=== PATIENT | female | born 1975 | race African-American/Black ===

== ENCOUNTER 2018-01-16 18:41 | Emergency (ER) | payer SELFPAY ==
[~2018-01-16] VITALS: Ht 167.6 cm; Wt 111.1 kg
[2018-01-16] MEDS ORDERED: diphenhdrAMINE HCL 50 MG/1 ML VL IV ONE (20:30)
[2018-01-16] MEDS ORDERED: EPINEPHrine HCL 1 MG/1 ML AMP SC ONE (20:30)
[2018-01-16] MEDS ORDERED: methylPREDNISolone SOD SUCC 125 MG/2 ML VL IV ONE (20:30)
[2018-01-16] MEDS ORDERED: SODIUM CHLORIDE 0.9% 1,000 ML IV ONE (20:30)
[2018-01-16 20:58] LABS: Basophils # (auto) 0.1 uL; Basophils % (auto) 0.9 % (0.0-2.0); Eosinophils # (auto) 0.1 uL; Eosinophils % (auto) 1.2 % (0.0-7.0); Hemoglobin 15.5 g/dL (12.2-16.2); Lymphocytes # (auto) 2.3 uL; Lymphocytes % (auto) 24.8 % (10.0-50.0); Mean Corpuscular Hemoglobin 30.3 pg (28.0-32.0); Mean Corpuscular Hgb Conc. 33.8 g/dL (32.0-36.0); Mean Corpuscular Volume 89.6 fL (80.0-100.0); Monocytes # (auto) 0.5 uL; Monocytes % (auto) 5.4 % (0.0-12.0); Neutrophils # (auto) 6.1 uL; Neutrophils % (auto) 67.7 % (37.0-80.0); Nucleated Red Blood Cells % 0.1 %; Platelet Count (auto) 361 10^3/uL (140-450); Red Blood Cells 5.13 10^6/uL (4.0-5.20); Red Cell Distribution Width 13.7 % (11.8-14.3); White Blood Cell 9.1 10^3/uL (4.4-10.8)
[2018-01-16 21:12] LABS: Potassium 3.2 mmol/L (3.5-5.1)
[2018-01-16 21:13] LABS: Albumin 3.1 g/dL (3.4-5.0); BUN/Creatinine Ratio 12.9; Bilirubin, Total 0.3 mg/dL (0.2-1.0); Calcium 8.3 mg/dL (8.5-10.1); Total Protein 7.6 g/dL (6.4-8.2)
[2018-01-16 22:28] VITALS: BP 104/56
== END 2018-01-16 23:19 | disposition home or self-care (01) ==
LOC: ER 18:41 → EDBD 18:41 → ER 23:19
DX: T78.40XA Allergy, unspecified, initial encounter (principal); E66.01 Morbid (severe) obesity due to excess calories; Z68.39 Body mass index [BMI] 39.0-39.9, adult; Z88.8 Allergy status to other drugs, medicaments and biological substances
CPT/HCPCS: 36415; 71045; 80053; 85025; 96361; 96372; 96374; 96375; 99285; J0171; J1200; J2930; J7030

== ENCOUNTER 2021-09-05 17:30 | Inpatient (IN) | payer MEDICAID ==
[~2021-09-05] VITALS: Ht 167.6 cm; Wt 165.6 kg
[2021-09-05] MEDS ORDERED: SODIUM CHLORIDE 0.9% 2,000 ML IV ONE (19:15)
[2021-09-05 21:12] LABS: Basophils # (auto) 0.1 10 ^3/uL (0-0.2); Basophils % (auto) 0.6 % (0.0-2.0); Eosinophils # (auto) 0 10 ^3/uL (0-0.8); Eosinophils % (auto) 0.3 % (0.0-7.0); Hematocrit 51.4 % (36.0-46.0); Hemoglobin 16.7 g/dL (12.2-16.2); Lymphocytes % (auto) 6.2 % (10.0-50.0); Mean Corpuscular Hemoglobin 30.5 pg (28.0-32.0); Mean Corpuscular Hgb Conc. 32.5 g/dL (32.0-36.0); Mean Corpuscular Volume 93.8 fL (80.0-100.0); Monocytes # (auto) 2.1 10 ^3/uL (0-1.3); Monocytes % (auto) 12.7 % (0.0-12.0); Neutrophils # (auto) 13.1 10 ^3/uL (1.6-8.6); Neutrophils % (auto) 80.2 % (37.0-80.0); Nucleated Red Blood Cells % 0.1 %; Red Blood Cells 5.47 10^6/uL (4.0-5.20); Red Cell Distribution Width 15.1 % (11.8-14.3); White Blood Cell 16.3 10^3/uL (4.4-10.8)
[2021-09-05 21:25] LABS: Albumin 3.3 g/dL (3.4-5.0); Anion Gap 24 (5-15); Blood Urea Nitrogen 23 mg/dL (7-18); Calcium 8.2 mg/dL (8.5-10.1); Chloride 97 mmol/L (98-107); Magnesium 3.5 mg/dL (1.6-2.6); Sodium 126 mmol/L (136-145)
[2021-09-05 21:28] LABS: Alanine Aminotransferase 43 U/L (13-56); Aspartate Aminotransferase 21 U/L (15-37); Bilirubin, Total 0.8 mg/dL (0.2-1.0); GFR African American 22 mL/min; GFR Non-African American 18 mL/min; Total Protein 8.1 g/dL (6.4-8.2)
[2021-09-05 21:33] LABS: Alkaline Phosphatase 139 U/L (45-117)
[2021-09-05 21:45] LABS: BUN/Creatinine Ratio 7.8; Carbon Dioxide 5 mmol/L (21-32); Glucose 846 mg/dL (74-106); Potassium 2.6 mmol/L (3.5-5.1)
[2021-09-05] MEDS ORDERED: POTASSIUM CHLORIDE 40 MEQ in D5W 5% 1,000 ML IV SCH (22:00)
[2021-09-05] MEDS ORDERED: INSULIN LANTUS (GLARGINE) 1 /0.01ml (100units/ml) SC ONE (22:00)
[2021-09-05] MEDS ORDERED: InsuLIN REG 1unit/0.01ml Soln (100units/ml) IV ONE (22:00)
[2021-09-05] MEDS ORDERED: DEXTROSE (50%) 50ML SYRG IV PRN (22:00)
[2021-09-05] MEDS ORDERED: InsuLIN REG 1unit/0.01ml Soln (100units/ml) ONE (23:27)
[2021-09-05] MEDS: ACCU-CHEK COMFORT CURVE STRIP VI SCH (23:30)
[2021-09-05] MEDS: InsuLIN R (HUMAN) 100 UNITS in SODIUM CHL 0.9% 99 ML IV SCH (23:30)
[2021-09-05] MEDS: POTASSIUM CHL 20MEQ/100ML 100 ML IV SCH (23:50)
[2021-09-06] MEDS: SODIUM CHLORIDE 0.9% 1,000 ML IV SCH ×8 (00:30→19:30)
[2021-09-06] MEDS: InsuLIN R (HUMAN) 100 UNITS in SODIUM CHL 0.9% 99 ML IV SCH ×8 (01:30→22:30)
[2021-09-06] MEDS: ACCU-CHEK COMFORT CURVE STRIP VI SCH ×16 (01:30→22:30)
[2021-09-06] MEDS ORDERED: SODIUM CHLORIDE 0.9% 1,000 ML IV SCH (02:00)
[2021-09-06] MEDS: POTASSIUM CHL 20MEQ/100ML 100 ML IV SCH ×2 (02:00→22:15)
[2021-09-06] MEDS ORDERED: TEMAZEPAM 15 MG CAP PO PRN (02:45)
[2021-09-06] MEDS ORDERED: DOCUSATE SOD 100 MG CAP PO PRN (02:45)
[2021-09-06] MEDS ORDERED: MORPHINE SULFATE INJECTION 2 MG/ML SYRG IV PRN (02:45)
[2021-09-06] MEDS ORDERED: MORPHINE SULFATE 4 MG/ML SYR/VIAL IV PRN (02:45)
[2021-09-06] MEDS ORDERED: HYDROcodone-ACET 5/325MG TAB PO PRN (02:45)
[2021-09-06] MEDS ORDERED: ONDANSETRON HCL 4 MG/2 ML VIAL IV PRN (02:45)
[2021-09-06] MEDS ORDERED: NITROGLYCERIN 0.4 MG SL TAB SL PRN (02:45)
[2021-09-06] MEDS: D5W/SOD CHL 0.45%/KCL 20MEQ 1,000 ML IV SCH ×4 (04:15→22:55)
[2021-09-06 04:51] LABS: BUN/Creatinine Ratio 8.8
[2021-09-06 05:02] LABS: Potassium 2.6 mmol/L (3.5-5.1)
[2021-09-06 06:24] LABS: Alcohol, Urine < 3.0 mg/dL (0-10); Amphetamine Screen, Urine NEGATIVE (NEGATIVE); Barbiturate Scree,Urine NEGATIVE (NEGATIVE); Benzodiazephine Screen, Urine NEGATIVE (NEGATIVE); Cannabinoid Screen, Urine NEGATIVE (NEGATIVE); Cocaine Screen, Urine NEGATIVE (NEGATIVE); Opiate Scree,Urine NEGATIVE (NEGATIVE); Phencyclidine Screen, Urine NEGATIVE (NEGATIVE)
[2021-09-06 06:31] LABS: Urine Bacteria NONE SEEN /hpf (None Seen); Urine Blood 3+ /uL (Negative); Urine Mucus FEW (None Seen); Urine Specific Gravity 1.013 (1.001-1.035); Urine WBC 4 /hpf (0 - 5)
[2021-09-06 08:10] LABS: BUN/Creatinine Ratio 9.8; Calcium 8.2 mg/dL (8.5-10.1)
[2021-09-06 08:16] LABS: Potassium 1.4 mmol/L (3.5-5.1)
[2021-09-06] MEDS ORDERED: POTASSIUM CHLORIDE 60 MEQ, LIDOCAINE 1% (LOCAL ANESTH.) 6 ML in SODIUM CHL 0.9% 500 ML IV ONE (08:30)
[2021-09-06] MEDS ORDERED: SODIUM CHLORIDE 0.9% 3,000 ML IV ONE (09:30)
[2021-09-06] MEDS ORDERED: SODIUM BICARBONATE 8.4 % INJ 50ML VIAL IV ONE ×3 (09:30→22:30)
[2021-09-06] MEDS: ASCORBIC ACID 500 MG TAB PO SCH ×2 (09:54→22:00)
[2021-09-06] MEDS: ZINC SULFATE 220mg CAP or TAB PO SCH (09:54)
[2021-09-06] MEDS: MULTIPLE VITAMIN TAB PO SCH (09:54)
[2021-09-06] MEDS: ENOXAPARIN SOD 30 MG/0.3 ML SYRINGE SC SCH ×2 (10:00→10:15)
[2021-09-06] MEDS ORDERED: SODIUM BICARBONATE 8.4% INJ 50ML SYRINGE ONE ×2 (10:02→17:06)
[2021-09-06] MEDS: SODIUM BICARBONATE 50ML VIAL 75 ML in SOD CHL 0.45% 1,000 ML IV SCH ×2 (11:52→21:00)
[2021-09-06 11:59] LABS: BUN/Creatinine Ratio 9.6; Calcium 7.6 mg/dL (8.5-10.1)
[2021-09-06 12:45] LABS: Potassium 2.2 mmol/L (3.5-5.1)
[2021-09-06] MEDS ORDERED: ETOMIDATE (2MG/ML) 20ML VIAL IV ONE ×3 (16:00→16:15)
[2021-09-06] MEDS: MIDAZOLAM DRIP 50 mg/50mL 50 ML IV SCH (16:00)
[2021-09-06] MEDS ORDERED: MIDAZOLAM DRIP 50 mg/50mL 50 ML IV ONE (16:03)
[2021-09-06 16:05] VITALS: BP 100/32
[2021-09-06] MEDS ORDERED: MIDAZOLAM DRIP 50 mg/50mL 50 ML IV SCH (16:05)
[2021-09-06 16:20] LABS: BUN/Creatinine Ratio 8.2
[2021-09-06 16:24] LABS: Potassium 1.6 mmol/L (3.5-5.1)
[2021-09-06] MEDS ORDERED: POTASSIUM CHLORIDE 80 MEQ, LIDOCAINE 1% (LOCAL ANESTH.) 6 ML in SODIUM CHL 0.9% 500 ML IV ONE (16:30)
[2021-09-06] MEDS ORDERED: POTASSIUM EFFERVESENT TAB 25 MEQ PO ONE ×2 (16:30→18:30)
[2021-09-06] MEDS ORDERED: NOREPINEPHRINE 8 MG/250ML KIT 250 ML IV ONE (16:39)
[2021-09-06] MEDS: NOREPINEPHRINE 8 MG/250ML KIT 250 ML IV SCH ×2 (16:40→23:50)
[2021-09-06] MEDS ORDERED: LORazepam 2MG/ML-1ML VIAL IV PRN (17:00)
[2021-09-06] MEDS ORDERED: FOLIC ACID 1 MG, MULTIPLE VITAMIN 10 ML, THIAMINE INJ 100 MG in D5W 5% 1,000 ML INJ ONE (17:00)
[2021-09-06] MEDS ORDERED: ALBUTEROL SULF 2.5 MG/0.5ML(0.5%) NEB SOLN NEB ONE (17:45)
[2021-09-06 17:48] VITALS: BP 77/36
[2021-09-06] MEDS: PIPERACILLIN-TAZOB 3.375GM 100 ML IV SCH (17:54)
[2021-09-06] MEDS ORDERED: POTASSIUM EFFERVESENT TAB 25 MEQ ONE (18:36)
[2021-09-06] MEDS ORDERED: InsuLIN R (HUMAN) 100 UNITS in SODIUM CHL 0.9% 99 ML IV SCH (20:15)
[2021-09-06] MEDS ORDERED: DEXTROSE (50%) 50ML SYRG IV PRN (20:15)
[2021-09-06 20:28] VITALS: BP 91/41
[2021-09-06 21:29] LABS: Calcium 6.9 mg/dL (8.5-10.1)
[2021-09-06 21:38] LABS: BUN/Creatinine Ratio 7.9
[2021-09-06 21:52] LABS: Potassium 1.6 mmol/L (3.5-5.1)
[2021-09-06] MEDS ORDERED: INSULIN LANTUS (GLARGINE) 1 /0.01ml (100units/ml) SC SCH (22:00)
[2021-09-06] MEDS: CLINDAMYCIN 600MG IV 50 ML IV SCH (22:00)
[2021-09-06] MEDS: AZITHROMYCIN 500MG/ 250ML 250 ML IV SCH (22:15)
[2021-09-06 22:20] VITALS: BP 71/29
[2021-09-06] MEDS ORDERED: POTASSIUM CHL 20MEQ/100ML 100 ML IV PRN (22:30)
[2021-09-06] MEDS ORDERED: POTASSIUM CHL 10MEQ/100ML 300 ML IV PRN (22:30)
[2021-09-06] MEDS ORDERED: MAGNESIUM SULFATE 1GM/100ML 200 ML IV ONE (22:30)
[2021-09-06] MEDS ORDERED: PHENYLEPHRINE IV 250 ML IV ONE (23:02)
[2021-09-06] MEDS: PHENYLEPHRINE IV 250 ML IV SCH (23:10)
[2021-09-06] MEDS ORDERED: EPINEPHrine HCL 250 ML IV SCH (23:15)
[2021-09-06] MEDS ORDERED: methylPREDNISolone SOD SUCC 125 MG/2 ML VL ONE (23:24)
[2021-09-06] MEDS ORDERED: methylPREDNISolone SOD SUCC 125 MG/2 ML VL IV ONE (23:30)
[2021-09-06] MEDS ORDERED: VASOPRESSIN 20 UNIT/ML ONE ×2 (23:51→23:55)
[2021-09-06 23:54] VITALS: BP 69/27
[2021-09-07] VITALS (10 sets, daily range): BP systolic 69–119; BP diastolic 27–54
[2021-09-07] MEDS: VASOPRESSIN 50 UNITS in D5W 5% 247.5 ML IV SCH ×2
[2021-09-07] MEDS ORDERED: ALBUMIN 25% 50 ML IV ONE
[2021-09-07] MEDS ORDERED: FUROSEMIDE 20 MG/2 ML VIAL IV ONE
[2021-09-07] MEDS: MIDAZOLAM DRIP 50 mg/50mL 50 ML IV SCH ×6 (00:06→20:11)
[2021-09-07] MEDS: POTASSIUM CHL 20MEQ/100ML 100 ML IV SCH (00:15)
[2021-09-07] MEDS: ACCU-CHEK COMFORT CURVE STRIP VI SCH ×16 (01:30→23:25)
[2021-09-07] MEDS: InsuLIN R (HUMAN) 100 UNITS in SODIUM CHL 0.9% 99 ML IV SCH ×6 (01:30→06:00)
[2021-09-07] MEDS: PHENYLEPHRINE IV 250 ML IV SCH ×5 (01:45→23:34)
[2021-09-07] MEDS: POTASSIUM CHL 20MEQ/100ML 200 ML IV PRN ×2 (02:00→14:58)
[2021-09-07] MEDS: IPRATROPIUM BROM 0.5 MG/2.5ML INH SOL NEB SCH ×6 (02:02→23:26)
[2021-09-07] MEDS: ALBUTEROL SULF 2.5 MG/0.5ML(0.5%) NEB SOLN NEB SCH ×6 (02:03→23:26)
[2021-09-07 02:38] LABS: BUN/Creatinine Ratio 6.8
[2021-09-07 02:59] LABS: Potassium 1.3 mmol/L (3.5-5.1)
[2021-09-07] MEDS: methylPREDNISolone SOD SUCC 40 MG/ML VL IV SCH ×3 (05:00→23:01)
[2021-09-07] MEDS: CLINDAMYCIN 600MG IV 50 ML IV SCH ×3 (05:00→23:00)
[2021-09-07] MEDS: NOREPINEPHRINE 8 MG/250ML KIT 250 ML IV SCH ×2 (05:00→22:12)
[2021-09-07] MEDS: PIPERACILLIN-TAZOB 3.375GM 100 ML IV SCH ×6 (05:30→23:01)
[2021-09-07] MEDS: ACETAMINOPHEN 325 MG TAB PO PRN (05:45)
[2021-09-07] MEDS ORDERED: POTASSIUM CHL 10MEQ/100ML 100 ML IV PRN (06:30)
[2021-09-07 07:18] LABS: Chloride 118 mmol/L (98-107); Sodium 140 mmol/L (136-145)
[2021-09-07 07:25] LABS: Alanine Aminotransferase 27 U/L (13-56); Albumin 1.6 g/dL (3.4-5.0); Alkaline Phosphatase 53 U/L (45-117); Anion Gap 10 (5-15); Aspartate Aminotransferase 45 U/L (15-37); BUN/Creatinine Ratio 6.7; Blood Urea Nitrogen 27 mg/dL (7-18); Calcium 7.2 mg/dL (8.5-10.1); Carbon Dioxide 12 mmol/L (21-32); GFR African American 15 mL/min; GFR Non-African American 13 mL/min; Magnesium 2.6 mg/dL (1.6-2.6); Total Protein 4.4 g/dL (6.4-8.2)
[2021-09-07 08:01] LABS: Hematocrit 35.3 % (36.0-46.0); Mean Corpuscular Hemoglobin 30.6 pg (28.0-32.0); Mean Corpuscular Hgb Conc. 34.5 g/dL (32.0-36.0); Mean Corpuscular Volume 88.9 fL (80.0-100.0); Red Blood Cells 3.97 10^6/uL (4.0-5.20); Red Cell Distribution Width 14.4 % (11.8-14.3); White Blood Cell 4.5 10^3/uL (4.4-10.8)
[2021-09-07 08:16] LABS: Hemoglobin 12.2 g/dL (12.2-16.2)
[2021-09-07 08:18] LABS: Basophils % (manual) 0 (0.0-2.0); Blast Cells 0; Reactive Lymphocytes 0
[2021-09-07] MEDS: SODIUM CHLORIDE 0.9% 1,000 ML IV SCH ×9 (08:22→23:25)
[2021-09-07 08:39] LABS: Glucose 505 mg/dL (74-106)
[2021-09-07 08:40] LABS: Phosphorus < 0.1 mg/dL (2.5-4.90)
[2021-09-07] MEDS: MULTIPLE VITAMIN TAB PO SCH (10:00)
[2021-09-07] MEDS ORDERED: ENOXAPARIN SOD 40 MG/0.4 ML SYRINGE SC SCH (10:00)
[2021-09-07] MEDS: ZINC SULFATE 220mg CAP or TAB PO SCH (10:00)
[2021-09-07] MEDS: ASCORBIC ACID 500 MG TAB PO SCH ×2 (10:00→23:01)
[2021-09-07] MEDS: INSULIN LANTUS (GLARGINE) 1 /0.01ml (100units/ml) SC SCH (11:13)
[2021-09-07] MEDS: PANTOPRAZOLE 40 MG/10 ML VIAL INJ IV SCH (11:15)
[2021-09-07] MEDS: D5W/SOD CHL 0.45%/KCL 20MEQ 1,000 ML IV SCH ×2 (11:39→19:00)
[2021-09-07] MEDS: SODIUM BICARBONATE 50ML VIAL 75 ML in SOD CHL 0.45% 1,000 ML IV SCH ×2 (11:39→17:45)
[2021-09-07] MEDS ORDERED: SODIUM BICARBONATE 8.4% INJ 50ML SYRINGE ONE ×2 (11:54→12:03)
[2021-09-07] MEDS ORDERED: POTASSIUM PHOSPHATE 44 MEQ in D5W 5% 250 ML IV ONE (12:00)
[2021-09-07] MEDS ORDERED: EPINEPHrine HCL 250 ML IV ONE (12:06)
[2021-09-07] MEDS ORDERED: SODIUM BICARBONATE 8.4 % INJ 50ML VIAL IV ONE ×2 (12:33→12:45)
[2021-09-07] MEDS: EPINEPHrine HCL 250 ML IV SCH ×2 (12:37→23:59)
[2021-09-07 13:22] LABS: Albumin 1.5 g/dL (3.4-5.0); Calcium 7.2 mg/dL (8.5-10.1)
[2021-09-07 13:27] LABS: BUN/Creatinine Ratio 6.7; Bilirubin, Total 1.3 mg/dL (0.2-1.0); Total Protein 4.3 g/dL (6.4-8.2)
[2021-09-07] MEDS ORDERED: AMIODARONE HCL (50 MG/ ML) 3 ML VIAL IV ONE (13:45)
[2021-09-07] MEDS ORDERED: AMIODARONE HCL 150 MG in D5W 5% 100 ML IV ONE (13:45)
[2021-09-07 14:15] LABS: Potassium 1.5 mmol/L (3.5-5.1)
[2021-09-07] MEDS ORDERED: AMIODARONE 450mg/250ml AE 250 ML IV SCH ×2 (14:15→20:15)
[2021-09-07] MEDS ORDERED: SODIUM CHL 0.9% 1000 ML BAG XX ONE (15:00)
[2021-09-07] MEDS ORDERED: LIDOCAINE HCL 100 MG/5ML (2%) SYRG INJ IV ONE (15:30)
[2021-09-07] MEDS ORDERED: LIDOCAINE 4MG/ML IV SOLN 500 ML IV SCH (15:30)
[2021-09-07] MEDS: AZITHROMYCIN 500MG/ 250ML 250 ML IV SCH (16:09)
[2021-09-07] MEDS ORDERED: LIDOCAINE 1% HCL (LOCAL ANESTH.) INJ 20ML MDV ONE (16:29)
[2021-09-07] MEDS: FOLIC ACID 1 MG, MULTIPLE VITAMIN 10 ML, THIAMINE INJ 100 MG in D5W 5% 1,000 ML INJ SCH (16:45)
[2021-09-07 16:58] LABS: Band Neutrophils % (manual) 29; Eosinophils % (manual) 1 (0-7); Lymphocytes % (manual) 15 (10.0-50.0); Metamyelocytes % 2; Monocytes % (manual) 9 (0-12); Myelocytes % 2; Promyelocytes % 1
[2021-09-07 17:25] LABS: Calcium 7.2 mg/dL (8.5-10.1)
[2021-09-07 17:30] LABS: BUN/Creatinine Ratio 6.9
[2021-09-07 18:31] LABS: Potassium 1.3 mmol/L (3.5-5.1)
[2021-09-07] MEDS ORDERED: EPOETIN ALFA-EPBX 10,000 UNIT/1ML VIAL SC ONE (21:00)
[2021-09-07 22:46] LABS: BUN/Creatinine Ratio 7.3; Calcium 6.6 mg/dL (8.5-10.1)
[2021-09-07 23:01] LABS: Potassium 1.7 mmol/L (3.5-5.1)
[2021-09-07] MEDS ORDERED: POTASSIUM EFFERVESENT TAB 25 MEQ GT SCH (23:15)
[2021-09-08] VITALS (12 sets, daily range): BP systolic 81–132; BP diastolic 27–72
[2021-09-08] MEDS: ACCU-CHEK COMFORT CURVE STRIP VI SCH ×16 (00:19→22:30)
[2021-09-08] MEDS: ACETAMINOPHEN 325 MG TAB PO PRN ×3 (00:42→19:06)
[2021-09-08] MEDS: PHENYLEPHRINE IV 250 ML IV SCH ×5 (01:37→21:48)
[2021-09-08] MEDS: VASOPRESSIN 50 UNITS in D5W 5% 247.5 ML IV SCH ×2 (01:49→02:20)
[2021-09-08] MEDS: IPRATROPIUM BROM 0.5 MG/2.5ML INH SOL NEB SCH ×6 (02:12→22:37)
[2021-09-08] MEDS: ALBUTEROL SULF 2.5 MG/0.5ML(0.5%) NEB SOLN NEB SCH ×6 (02:12→22:37)
[2021-09-08] MEDS: InsuLIN R (HUMAN) 100 UNITS in SODIUM CHL 0.9% 99 ML IV SCH (02:20)
[2021-09-08] MEDS: MIDAZOLAM DRIP 50 mg/50mL 50 ML IV SCH ×5 (02:22→17:12)
[2021-09-08] MEDS: D5W/SOD CHL 0.45%/KCL 20MEQ 1,000 ML IV SCH ×4 (03:00→21:55)
[2021-09-08] MEDS: POTASSIUM EFFERVESENT TAB 25 MEQ GT SCH ×5 (03:02→11:00)
[2021-09-08] MEDS: NOREPINEPHRINE 8 MG/250ML KIT 250 ML IV SCH ×2 (03:22→22:40)
[2021-09-08] MEDS: SODIUM CHLORIDE 0.9% 1,000 ML IV SCH ×6 (03:44→23:00)
[2021-09-08] MEDS ORDERED: POTASSIUM CHL 20MEQ/100ML 100 ML IV ONE ×2 (05:00→05:10)
[2021-09-08] MEDS: SODIUM BICARBONATE 50ML VIAL 75 ML in SOD CHL 0.45% 1,000 ML IV SCH ×2 (05:49→15:15)
[2021-09-08] MEDS: PIPERACILLIN-TAZOB 3.375GM 100 ML IV SCH ×3 (06:00→15:00)
[2021-09-08] MEDS: methylPREDNISolone SOD SUCC 40 MG/ML VL IV SCH ×3 (06:33→23:00)
[2021-09-08] MEDS: CLINDAMYCIN 600MG IV 50 ML IV SCH ×3 (07:22→23:00)
[2021-09-08] MEDS: INSULIN LANTUS (GLARGINE) 1 /0.01ml (100units/ml) SC SCH (10:00)
[2021-09-08] MEDS: ASCORBIC ACID 500 MG TAB PO SCH ×2 (10:00→23:00)
[2021-09-08] MEDS ORDERED: ENOXAPARIN SOD 30 MG/0.3 ML SYRINGE SC SCH (10:00)
[2021-09-08] MEDS: MULTIPLE VITAMIN TAB PO SCH (10:00)
[2021-09-08] MEDS: ZINC SULFATE 220mg CAP or TAB PO SCH (10:00)
[2021-09-08] MEDS: PANTOPRAZOLE 40 MG/10 ML VIAL INJ IV SCH (10:00)
[2021-09-08] MEDS: AZITHROMYCIN 500MG/ 250ML 250 ML IV SCH (10:00)
[2021-09-08] MEDS: FOLIC ACID 1 MG, MULTIPLE VITAMIN 10 ML, THIAMINE INJ 100 MG in D5W 5% 1,000 ML INJ SCH (10:56)
[2021-09-08 14:25] LABS: Hematocrit 34.2 % (36.0-46.0); Hemoglobin 12.1 g/dL (12.2-16.2); Mean Corpuscular Hemoglobin 29.9 pg (28.0-32.0); Mean Corpuscular Hgb Conc. 35.4 g/dL (32.0-36.0); Mean Corpuscular Volume 84.3 fL (80.0-100.0); Red Blood Cells 4.05 10^6/uL (4.0-5.20); Red Cell Distribution Width 14.3 % (11.8-14.3); White Blood Cell 23.2 10^3/uL (4.4-10.8)
[2021-09-08 14:34] LABS: Basophils % (manual) 0 (0.0-2.0); Blast Cells 0; Eosinophils % (manual) 0 (0-7); Promyelocytes % 0; Reactive Lymphocytes 0
[2021-09-08 14:49] LABS: Albumin 1.3 g/dL (3.4-5.0); Potassium 3.3 mmol/L (3.5-5.1)
[2021-09-08 14:53] LABS: BUN/Creatinine Ratio 8.1; Bilirubin, Total 2.7 mg/dL (0.2-1.0); Total Protein 4.7 g/dL (6.4-8.2)
[2021-09-08] MEDS ORDERED: CALCIUM GLUC 1,000mg/50ml-NS 50 ML IV ONE (15:30)
[2021-09-08 17:08] LABS: Band Neutrophils % (manual) 25; Lymphocytes % (manual) 13 (10.0-50.0); Metamyelocytes % 7; Monocytes % (manual) 7 (0-12); Myelocytes % 1
[2021-09-08] MEDS: EPINEPHrine HCL 250 ML IV SCH (20:00)
[2021-09-08] MEDS ORDERED: ROCURONIUM 10MG/ML 10ML VIAL IV PRN (22:45)
[2021-09-08] MEDS ORDERED: PROPOFOL 100 ML IV SCH (22:45)
[2021-09-08] MEDS ORDERED: fentaNYL Drip 2500mCg/250mlNS 250 ML IV SCH (22:45)
[2021-09-09] MEDS: PHENYLEPHRINE IV 250 ML IV SCH ×3 (00:06→04:21)
[2021-09-09 00:42] VITALS: BP 84/68
[2021-09-09] MEDS: ACETAMINOPHEN 325 MG TAB PO PRN (00:42)
[2021-09-09] MEDS: EPINEPHrine HCL 250 ML IV SCH (00:45)
[2021-09-09] MEDS: ACCU-CHEK COMFORT CURVE STRIP VI SCH ×5 (01:30→06:00)
[2021-09-09 02:32] VITALS: BP 90/73
[2021-09-09] MEDS: IPRATROPIUM BROM 0.5 MG/2.5ML INH SOL NEB SCH ×2 (02:32→05:54)
[2021-09-09] MEDS: ALBUTEROL SULF 2.5 MG/0.5ML(0.5%) NEB SOLN NEB SCH ×2 (02:32→05:54)
[2021-09-09] MEDS: SODIUM CHLORIDE 0.9% 1,000 ML IV SCH ×2 (02:45→06:45)
[2021-09-09] MEDS ORDERED: ACETAMINOPHEN 325 MG TAB PO PRN (02:45)
[2021-09-09] MEDS: NOREPINEPHRINE 8 MG/250ML KIT 250 ML IV SCH (04:21)
[2021-09-09 04:29] VITALS: BP 87/69
[2021-09-09 05:34] LABS: Hematocrit 30.7 % (36.0-46.0); Hemoglobin 10.6 g/dL (12.2-16.2); Mean Corpuscular Hemoglobin 29.9 pg (28.0-32.0); Mean Corpuscular Hgb Conc. 34.6 g/dL (32.0-36.0); Mean Corpuscular Volume 86.6 fL (80.0-100.0); Red Blood Cells 3.55 10^6/uL (4.0-5.20); Red Cell Distribution Width 14.3 % (11.8-14.3); White Blood Cell 26.2 10^3/uL (4.4-10.8)
[2021-09-09 05:43] LABS: Anion Gap 8 (5-15); Blood Urea Nitrogen 36 mg/dL (7-18); Carbon Dioxide 12 mmol/L (21-32); Chloride 120 mmol/L (98-107); Glucose 255 mg/dL (74-106); Potassium 3.9 mmol/L (3.5-5.1); Sodium 140 mmol/L (136-145)
[2021-09-09 05:46] LABS: Basophils % (manual) 0 (0.0-2.0); Blast Cells 0; Eosinophils % (manual) 0 (0-7); Promyelocytes % 0; Reactive Lymphocytes 0
[2021-09-09 05:47] LABS: Alanine Aminotransferase 164 U/L (13-56); Alkaline Phosphatase 101 U/L (45-117); Aspartate Aminotransferase 583 U/L (15-37); BUN/Creatinine Ratio 9.6; Bilirubin, Total 2.6 mg/dL (0.2-1.0); GFR African American 17 mL/min; GFR Non-African American 14 mL/min; Total Protein 3.9 g/dL (6.4-8.2)
[2021-09-09 05:54] VITALS: BP 77/59
[2021-09-09] MEDS: CLINDAMYCIN 600MG IV 50 ML IV SCH (06:00)
[2021-09-09] MEDS: D5W/SOD CHL 0.45%/KCL 20MEQ 1,000 ML IV SCH (06:23)
[2021-09-09] MEDS: methylPREDNISolone SOD SUCC 40 MG/ML VL IV SCH (06:41)
[2021-09-09 07:17] LABS: Band Neutrophils % (manual) 26; Lymphocytes % (manual) 6 (10.0-50.0); Metamyelocytes % 3; Monocytes % (manual) 6 (0-12); Myelocytes % 1
[2021-09-09 07:37] VITALS: BP 53/31
[2021-09-09] MEDS ORDERED: LIDOCAINE 50MG/5ML INJ 5ML SYRINGE IV ONE (11:16)
[2021-09-09] MEDS ORDERED: EPINEPHrine HCL 1 MG/10 ML SYRG IV ONE (11:16)
[2021-09-09] MEDS ORDERED: CALCIUM CHLOR(10%) 100MG/ML 10ML SYRINGE IV ONE (11:16)
[2021-09-09] MEDS ORDERED: SODIUM BICARBONATE 8.4% INJ 50ML SYRINGE IV ONE (11:16)
[2021-09-10 13:40] LABS: Hepatitis A Ab IgM Negative
[2021-09-10 14:00] LABS: Hepatitis B Core IgM Negative
[2021-09-10 14:21] LABS: Hepatitis C Antibody Negative (Negative)
== END 2021-09-09 07:56 | DRG 420 ==
LOC: EDBD 17:30 → ER 17:30 → TELE 09-06 02:45
PROVIDERS: ADMIT Internal Medicine; ATTEND Internal Medicine
PROC: 5A1945Z Respiratory Ventilation, 24-96 Consecutive Hours (ICD-10-PCS; 2021-09-06)
PROC: 06HM33Z Insertion of Infusion Device into Right Femoral Vein, Percutaneous Approach (ICD-10-PCS; 2021-09-06)
PROC: 0BH17EZ Insertion of Endotracheal Airway into Trachea, Via Natural or Artificial Opening (ICD-10-PCS; 2021-09-06)
PROC: 06HN33Z Insertion of Infusion Device into Left Femoral Vein, Percutaneous Approach (ICD-10-PCS; 2021-09-07)
PROC: 05HD33Z Insertion of Infusion Device into Right Cephalic Vein, Percutaneous Approach (ICD-10-PCS; 2021-09-07)
PROC: B54MZZA Ultrasonography of Right Upper Extremity Veins, Guidance (ICD-10-PCS; 2021-09-07)
PROC: 06HM33Z Insertion of Infusion Device into Right Femoral Vein, Percutaneous Approach (ICD-10-PCS; 2021-09-08)
PROC: 03HY32Z Insertion of Monitoring Device into Upper Artery, Percutaneous Approach (ICD-10-PCS; 2021-09-08)
PROC: 4A133B1 Monitoring of Arterial Pressure, Peripheral, Percutaneous Approach (ICD-10-PCS; 2021-09-08)
PROC: 4A133J1 Monitoring of Arterial Pulse, Peripheral, Percutaneous Approach (ICD-10-PCS; 2021-09-08)
PROC: 5A12012 Performance of Cardiac Output, Single, Manual (ICD-10-PCS; principal; 2021-09-09)
DX: E10.11 Type 1 diabetes mellitus with ketoacidosis with coma (principal); J96.00 Acute respiratory failure, unspecified whether with hypoxia or hypercapnia; N17.0 Acute kidney failure with tubular necrosis; R57.0 Cardiogenic shock; G93.41 Metabolic encephalopathy; R65.10 Systemic inflammatory response syndrome (SIRS) of non-infectious origin without acute organ dysfunction; Z68.43 Body mass index [BMI] 50.0-59.9, adult; E86.9 Volume depletion, unspecified; I46.9 Cardiac arrest, cause unspecified; E66.01 Morbid (severe) obesity due to excess calories; E87.6 Hypokalemia; Z20.822 Contact with and (suspected) exposure to COVID-19; Z99.2 Dependence on renal dialysis; Z91.010 Allergy to peanuts
CPT/HCPCS: 36415; 36600; 71045; 76942; 80048; 80053; 80074; 80307; 80320; 81001; 81025; 82010; 82805; 82962; 83605; 83735; 83880; 83930; 84100; 84443; 84484; 85007; 85025; 85027; 85610; 85730; 87040; 87070; 87077; 87086; 87186; 87205; 87426; 90935; 92950; 93005; 93306; 94002; 94003; 94640; 96361; 96365; 96366; 96372; 96375; 99291; C9113; G0378; J0171; J1642; J1815; J2001; J2250; J2405; J2543; J3480; J3490; J7060